=== PATIENT | male | born 1960 | race Caucasian/White ===

== ENCOUNTER → 2023-03-11 | Outpatient (CLI) | payer OTHER ==
[2023-03-11 17:34] LABS: Source, Urine Voided
[2023-03-11 19:04] LABS: BASOPHILS ABSOLUTE AUTO 0.04 K/mm3 (0.00-0.23); BASOPHILS PERCENT AUTO 1 % (0-2); EOSINOPHILS ABSOLUTE AUTO 0.18 K/mm3 (0.00-0.68); EOSINOPHILS PERCENT AUTO 3 % (0-6); Hematocrit 46.8 % (37.0-53.0); Hemoglobin 15.5 g/dL (13.5-17.5); IMMATURE GRAN ABSOLUTE AUTO 0.02 K/mm3 (0.00-0.10); IMMATURE GRAN PERCENT AUTO 0 % (0-1); LYMPHOCYTES ABSOLUTE AUTO 1.55 K/mm3 (0.84-5.20); LYMPHOCYTES PERCENT AUTO 27 % (21-46); MONOCYTES ABSOLUTE AUTO 0.52 K/mm3 (0.16-1.47); MONOCYTES PERCENT AUTO 9 % (4-13); Mean Corpuscular HGB 27.7 pg (26.0-34.0); Mean Corpuscular HGB Conc 33.1 g/dL (31.5-36.5); Mean Corpuscular Volume 84 fL (80-100); Mean Platelet Volume 10.4 fL (9.1-12.4); NEUTROPHILS PERCENT AUTO 60 % (41-73); Platelet Count 193 K/mm3 (150-400); RDW Coefficient Variation 13.4 % (11.7-14.2); RDW Standard Deviation 41.1 fL (35.1-46.3); Red Blood Cell Count 5.59 M/mm3 (4.30-5.90); White Blood Cell Count 5.81 K/mm3 (4.00-11.30)
[2023-03-11 19:08] LABS: Appearance, Urine Clear (Clear); Bilirubin, Urine Neg (Neg); Blood, Urine Neg (Neg); Color, Urine Yellow (P-Yellow); Glucose Qualitative, Urine 1+ (Neg); Ketones, Urine Neg (Neg); Leukocyte Esterase, Urine 1+ (Neg); Nitrite, Urine Neg (Neg); Protein, Urine 2+ (Neg); Urobilinogen, Urine NORM (Normal)
[2023-03-11 19:12] LABS: Red Blood Cells, Urine 0-2 /hpf (0-2); Squamous Epithelial Cells Rare /hpf (Few)
[2023-03-11 19:13] LABS: Bacteria Few /hpf
== END ==
LOC: LAB 17:31 → LAB SHORT 17:31
PROVIDERS: Nurse Practitioner Family
DX: Z12.5 Encounter for screening for malignant neoplasm of prostate (principal); I10 Essential (primary) hypertension; F32.9 Major depressive disorder, single episode, unspecified; E78.2 Mixed hyperlipidemia; E55.9 Vitamin D deficiency, unspecified; R35.89 Other polyuria
CPT/HCPCS: 81001; 83036; 85025; 87086

== ENCOUNTER → 2023-03-12 | Outpatient (CLI) | payer OTHER ==
[2023-03-12 14:10] LABS: CHOL/HDL RATIO 6.5; Cholesterol 221 mg/dL (50-200); HDL Cholesterol 34 mg/dL (>39); LDL/HDL RATIO 3.7; Low Density Lipoprotein Chol 127 mg/dL (0-110); Triglycerides 300 mg/dL (30-160); Very Low Density Lipoprot Chol 60 mg/dL (6-32)
[2023-03-13 15:09] LABS: A/G RATIO 1.7 (1.2-2.2); BILIRUBIN, TOTAL 0.6 mg/dL (0.0-1.2); CALCIUM, SERUM 9.6 mg/dL (8.6-10.2); CREATININE, SERUM 1.37 mg/dL (0.76-1.27); GLOBULIN, TOTAL 2.6 g/dL (1.5-4.5); POTASSIUM, SERUM 4.8 mmol/L (3.5-5.2); PROTEIN, TOTAL, SERUM 6.9 g/dL (6.0-8.5)
== END ==
LOC: LAB SHORT 12:46
PROVIDERS: Nurse Practitioner Family
DX: E78.2 Mixed hyperlipidemia (principal); E55.9 Vitamin D deficiency, unspecified; I10 Essential (primary) hypertension; Z12.5 Encounter for screening for malignant neoplasm of prostate; F32.9 Major depressive disorder, single episode, unspecified
CPT/HCPCS: 80053; 80061; 82306; 84443; G0103

== ENCOUNTER 2023-04-24 12:53 | Emergency (ER) | payer OTHER ==
[~2023-04-24] VITALS: Ht 177.8 cm; Wt 131.5 kg
[2023-04-24] MEDS ORDERED: NS 1,000 ML IV SCH (13:00)
[2023-04-24 13:52] LABS: BASOPHILS ABSOLUTE AUTO 0.03 K/mm3 (0.00-0.23); BASOPHILS PERCENT AUTO 1 % (0-2); EOSINOPHILS ABSOLUTE AUTO 0.15 K/mm3 (0.00-0.68); EOSINOPHILS PERCENT AUTO 3 % (0-6); Hematocrit 41.4 % (37.0-53.0); IMMATURE GRAN ABSOLUTE AUTO 0.01 K/mm3 (0.00-0.10); IMMATURE GRAN PERCENT AUTO 0 % (0-1); LYMPHOCYTES ABSOLUTE AUTO 1.35 K/mm3 (0.84-5.20); LYMPHOCYTES PERCENT AUTO 27 % (21-46); MONOCYTES ABSOLUTE AUTO 0.52 K/mm3 (0.16-1.47); MONOCYTES PERCENT AUTO 10 % (4-13); Mean Corpuscular HGB 28.3 pg (26.0-34.0); Mean Corpuscular HGB Conc 33.8 g/dL (31.5-36.5); Mean Corpuscular Volume 84 fL (80-100); Mean Platelet Volume 9.8 fL (9.1-12.4); NEUTROPHILS ABSOLUTE AUTO 2.94 K/mm3 (1.96-9.15); NEUTROPHILS PERCENT AUTO 59 % (41-73); Platelet Count 146 K/mm3 (150-400); RDW Coefficient Variation 13.2 % (11.7-14.2); RDW Standard Deviation 40.5 fL (35.1-46.3); Red Blood Cell Count 4.95 M/mm3 (4.30-5.90)
[2023-04-24 14:17] LABS: Albumin, Blood 3.6 g/dL (3.4-5.0); Bilirubin, Total 0.7 mg/dL (0.1-1.0); Bun/Creatinine Ratio 12.2 (12.0-20.0); Calcium, Blood 9.3 mg/dL (8.5-10.1); Creatinine, Blood 1.15 mg/dL (0.60-1.20); Globulin, Blood 3.5 g/dL (2.2-4.0); Total Protein, Blood 7.1 g/dL (6.4-8.2)
[2023-04-24 16:32] VITALS: BP 152/95
== END 2023-04-24 16:33 | disposition home or self-care (01) ==
LOC: ER 12:53
PROVIDERS: Emergency Medicine
DX: R41.82 Altered mental status, unspecified (principal); Z88.0 Allergy status to penicillin
CPT/HCPCS: 70450; 80053; 85025; 93005; 93010; 96360; 96361; 99284-25; J7030

== ENCOUNTER 2023-08-26 10:51 | Emergency (ER) | payer MEDICARE, OTHER ==
[~2023-08-26] VITALS: Ht 172.7 cm; Wt 108.9 kg
[~2023-08-26 10:51] MED LIST: ALBU90OI INH; ALLO300 PO; ATOR40TA PO; Aspir 8181 MG PO; BANATROL PLUS1 EAC1 PO; BASAGLAR K100 UNIT/1 SC; BUPR150ER PO; BUPR75 PO; ERGO50000 PO; HUMALOG KW100 UNIT/1 SC; LEVE500 PO; LISI20 PO; LOSA50 PO; MONT10T PO; ROPI1 PO; SERT100 PO; TAMS.4ER PO; TROKENDI XR100 MG PO
[2023-08-26] MEDS ORDERED: ONDA4ODT MM (11:08)
[2023-08-26] MEDS ORDERED: LASIX20 M2 PO (11:09)
[2023-08-26 11:15] VITALS: BP 164/95
[2023-08-26] MEDS ORDERED: Topiramate 100 MG Tab PO ONE (11:20)
== END 2023-08-26 11:45 | disposition home or self-care (01) ==
LOC: ER 10:51
DX: G40.909 Epilepsy, unspecified, not intractable, without status epilepticus (principal); Z88.0 Allergy status to penicillin; Z79.4 Long term (current) use of insulin; Z79.85 Long-term (current) use of injectable non-insulin antidiabetic drugs; Z79.899 Other long term (current) drug therapy
CPT/HCPCS: 99284; A9270

== ENCOUNTER 2023-08-29 15:52 | Emergency (ER) | payer MEDICARE, OTHER ==
[~2023-08-29] VITALS: Ht 180.3 cm; Wt 120.2 kg
[~2023-08-29 15:52] MED LIST changes: +LASIX20 M2 PO; +ONDA4ODT MM
[2023-08-29 16:17] LABS: BASOPHILS ABSOLUTE AUTO 0.03 K/mm3 (0.00-0.23); BASOPHILS PERCENT AUTO 1 % (0-2); EOSINOPHILS ABSOLUTE AUTO 0.09 K/mm3 (0.00-0.68); EOSINOPHILS PERCENT AUTO 2 % (0-6); Hematocrit 45.4 % (37.0-53.0); Hemoglobin 15.1 g/dL (13.5-17.5); IMMATURE GRAN ABSOLUTE AUTO 0.02 K/mm3 (0.00-0.10); IMMATURE GRAN PERCENT AUTO 0 % (0-1); LYMPHOCYTES PERCENT AUTO 14 % (21-46); MONOCYTES ABSOLUTE AUTO 0.77 K/mm3 (0.16-1.47); MONOCYTES PERCENT AUTO 13 % (4-13); Mean Corpuscular HGB 28.2 pg (26.0-34.0); Mean Corpuscular HGB Conc 33.3 g/dL (31.5-36.5); Mean Corpuscular Volume 85 fL (80-100); Mean Platelet Volume 9.9 fL (9.1-12.4); NEUTROPHILS ABSOLUTE AUTO 4.21 K/mm3 (1.96-9.15); NEUTROPHILS PERCENT AUTO 71 % (41-73); Platelet Count 159 K/mm3 (150-400); RDW Coefficient Variation 13.2 % (11.7-14.2); RDW Standard Deviation 40.3 fL (35.1-46.3); Red Blood Cell Count 5.36 M/mm3 (4.30-5.90); White Blood Cell Count 5.92 K/mm3 (4.00-11.30)
[2023-08-29 16:31] LABS: Albumin, Blood 3.9 g/dL (3.4-5.0); Albumin/Globulin Ratio 0.9 (0.8-1.8); Bilirubin, Total 0.5 mg/dL (0.1-1.0); Bun/Creatinine Ratio 14.9 (12.0-20.0); Calcium, Blood 8.7 mg/dL (8.5-10.1); Creatinine, Blood 1.48 mg/dL (0.60-1.20); Globulin, Blood 4.3 g/dL (2.2-4.0); Potassium, Blood 3.6 mmol/L (3.5-5.5); Total Protein, Blood 8.2 g/dL (6.4-8.2)
[2023-08-29] MEDS ORDERED: NS 1,000 ML IV SCH (17:10)
[2023-08-29] MEDS ORDERED: Acetaminophen 500 MG Tab PO ONE (17:55)
[2023-08-29] MEDS ORDERED: Topiramate 100 MG Tab PO ONE (18:10)
[2023-08-29 18:15] LABS: Influenza A, PCR NEGATIVE (NEGATIVE); Influenza B, PCR NEGATIVE (NEGATIVE); Resp Syncytial Virus, PCR NEGATIVE (NEGATIVE)
[2023-08-29 18:20] LABS: Source, Urine Clean Catch
[2023-08-29 18:25] LABS: Appearance, Urine Clear (Clear); Bilirubin, Urine Neg (Neg); Blood, Urine Neg (Neg); Color, Urine Yellow (P-Yellow); Glucose Qualitative, Urine Neg (Neg); Ketones, Urine Neg (Neg); Leukocyte Esterase, Urine Neg (Neg); Nitrite, Urine Neg (Neg); Protein, Urine Neg (Neg); Urobilinogen, Urine NORM (Normal)
[2023-08-29 18:48] LABS: SARS-Cov-2 (COVID-19) PCR, MMC POSITIVE (NEGATIVE)
[2023-08-29] MEDS ORDERED: ONDA4ODT MM (18:52)
[2023-08-29 19:20] VITALS: BP 119/95
== END 2023-08-29 19:25 | disposition home or self-care (01) ==
LOC: ER 15:52
PROVIDERS: Emergency Medicine
DX: U07.1 COVID-19 (principal); G40.909 Epilepsy, unspecified, not intractable, without status epilepticus; I10 Essential (primary) hypertension; G47.33 Obstructive sleep apnea (adult) (pediatric); E11.9 Type 2 diabetes mellitus without complications; Z86.73 Personal history of transient ischemic attack (TIA), and cerebral infarction without residual deficits; Z79.4 Long term (current) use of insulin; Z79.899 Other long term (current) drug therapy; Z79.82 Long term (current) use of aspirin; Z88.1 Allergy status to other antibiotic agents
CPT/HCPCS: 0241U; 71046; 80053; 81003; 85025; 93005; 93010; 96360; 99285-25; A9270; J7030

== ENCOUNTER 2023-12-05 13:09 | Observation (INO) | payer OTHER ==
[~2023-12-05] VITALS: Ht 167.6 cm; Wt 124.7 kg
[2023-12-05] MEDS ORDERED: Ondansetron HCl 2 MG / ML 2ML Vial ONE (13:28)
[2023-12-05 14:27] LABS: BASOPHILS ABSOLUTE AUTO 0.06 K/mm3 (0.00-0.23); BASOPHILS PERCENT AUTO 1 % (0-2); EOSINOPHILS ABSOLUTE AUTO 0.19 K/mm3 (0.00-0.68); EOSINOPHILS PERCENT AUTO 2 % (0-6); Hematocrit 48.2 % (37.0-53.0); Hemoglobin 16.1 g/dL (13.5-17.5); IMMATURE GRAN ABSOLUTE AUTO 0.03 K/mm3 (0.00-0.10); IMMATURE GRAN PERCENT AUTO 0 % (0-1); LYMPHOCYTES ABSOLUTE AUTO 1.92 K/mm3 (0.84-5.20); LYMPHOCYTES PERCENT AUTO 23 % (21-46); MONOCYTES ABSOLUTE AUTO 0.87 K/mm3 (0.16-1.47); MONOCYTES PERCENT AUTO 11 % (4-13); Mean Corpuscular HGB 27.4 pg (26.0-34.0); Mean Corpuscular HGB Conc 33.4 g/dL (31.5-36.5); Mean Corpuscular Volume 82 fL (80-100); Mean Platelet Volume 9.6 fL (9.1-12.4); NEUTROPHILS ABSOLUTE AUTO 5.14 K/mm3 (1.96-9.15); NEUTROPHILS PERCENT AUTO 63 % (41-73); Platelet Count 211 K/mm3 (150-400); RDW Coefficient Variation 13.8 % (11.7-14.2); Red Blood Cell Count 5.87 M/mm3 (4.30-5.90); White Blood Cell Count 8.21 K/mm3 (4.00-11.30)
[2023-12-05 14:42] LABS: Ethanol (Alcohol), Blood, Med <3 mg/dL; Free Thyroxine 0.91 ng/dL (0.70-1.60); Salicylate <1.7 mg/dL (2.8-20.0)
[2023-12-05 14:51] LABS: Acetaminophen, Random <2.0 ug/mL (10.0-30.0); Alanine Aminotransfer (ALT/SGP 45 U/L (12-78); Albumin, Blood 3.9 g/dL (3.4-5.0); Alk Phos 79 U/L (50-136); Anion Gap 11 mmol/L (3-11); Aspartate Aminotrans (AST/SGOT 34 U/L (12-37); Bilirubin, Total 0.5 mg/dL (0.1-1.0); Blood Urea Nitrogen 20 mg/dL (8-24); Bun/Creatinine Ratio 16.7 (12.0-20.0); CO2, Blood 22 mmol/L (21-32); Calcium, Blood 9.4 mg/dL (8.5-10.1); Chloride, Blood 108 mmol/L (98-108); Globulin, Blood 3.8 g/dL (2.2-4.0); Glomerular Filtration Rate 67 (60-); Glucose, Blood 131 mg/dL (70-99); Sodium, Blood 137 mmol/L (136-145); Total Protein, Blood 7.7 g/dL (6.4-8.2)
[2023-12-05] MEDS ORDERED: NS 1,000 ML BAG IR ONE (15:00)
[2023-12-05] MEDS ORDERED: NS 1,000 ML IV SCH (15:45)
[2023-12-05 17:31] LABS: U Amphetamine Screen Not Detected; U Barbituate Screen Not Detected; U Benzodiazapine Screen Not Detected; U Buprenorphine Screen Not Detected; U Cannabinoids Screen Not Detected; U Cocaine Screen Not Detected; U Methadone Screen Not Detected; U Methamphetamine Screen Not Detected; U Opiates Screen Not Detected; U Oxycodone Screen Not Detected; U Phencyclidine Screen Not Detected
[2023-12-06] MEDS ORDERED: Albuterol HFA200 ACT/6.7 GM INH INH PRN (13:00)
[2023-12-06] MEDS ORDERED: Ondansetron 4 MG SoluTab SL PRN (13:10)
[2023-12-06] MEDS ORDERED: Loperamide HCl 2 MG Cap PO ONE (15:40)
[2023-12-06] MEDS ORDERED: Insulin Human Lispro 100 Units/ML 3ML Syringe SC SCH (16:30)
[2023-12-06] MEDS ORDERED: Montelukast Sodium 10 MG Tab PO SCH (21:00)
[2023-12-06] MEDS ORDERED: Insulin Glargine-Yfgn 100 Unit/mL 3 ML SYR SC SCH (21:00)
[2023-12-06] MEDS ORDERED: Topiramate 100 MG Tab PO SCH (21:00)
[2023-12-06] MEDS ORDERED: FLU VACC TS2024-25(6MOS UP)/PF 45 MCG/0.5 ML SYRINGE IM SCH (22:35)
[2023-12-06] MEDS ORDERED: Ondansetron HCl 2 MG / ML 2ML Vial IV PRN (22:35)
[2023-12-06] MEDS ORDERED: Enoxaparin 40 MG/0.4 ML SYR SC SCH (23:00)
[2023-12-07 01:19] VITALS: BP 125/99
[2023-12-07 04:16] LABS: BASOPHILS ABSOLUTE AUTO 0.03 K/mm3 (0.00-0.23); BASOPHILS PERCENT AUTO 0 % (0-2); EOSINOPHILS ABSOLUTE AUTO 0.18 K/mm3 (0.00-0.68); EOSINOPHILS PERCENT AUTO 2 % (0-6); Hemoglobin 14.6 g/dL (13.5-17.5); IMMATURE GRAN ABSOLUTE AUTO 0.03 K/mm3 (0.00-0.10); IMMATURE GRAN PERCENT AUTO 0 % (0-1); LYMPHOCYTES ABSOLUTE AUTO 1.62 K/mm3 (0.84-5.20); LYMPHOCYTES PERCENT AUTO 20 % (21-46); MONOCYTES PERCENT AUTO 6 % (4-13); Mean Corpuscular HGB 27.5 pg (26.0-34.0); Mean Corpuscular HGB Conc 32.4 g/dL (31.5-36.5); Mean Corpuscular Volume 85 fL (80-100); Mean Platelet Volume 9.8 fL (9.1-12.4); NEUTROPHILS ABSOLUTE AUTO 5.57 K/mm3 (1.96-9.15); NEUTROPHILS PERCENT AUTO 70 % (41-73); Platelet Count 189 K/mm3 (150-400); RDW Coefficient Variation 14.2 % (11.7-14.2); RDW Standard Deviation 43.8 fL (35.1-46.3); White Blood Cell Count 7.93 K/mm3 (4.00-11.30)
[2023-12-07 04:38] LABS: Albumin, Blood 3.6 g/dL (3.4-5.0); Albumin/Globulin Ratio 0.9 (0.8-1.8); Bilirubin, Total 0.6 mg/dL (0.1-1.0); Bun/Creatinine Ratio 15.2 (12.0-20.0); Creatinine, Blood 1.58 mg/dL (0.60-1.20); Globulin, Blood 3.8 g/dL (2.2-4.0); Potassium, Blood 3.7 mmol/L (3.5-5.5); Total Protein, Blood 7.4 g/dL (6.4-8.2)
[2023-12-07 04:40] VITALS: BP 112/62
--- NOTE | 2023-12-07 05:22 | NUR ---
END OF SHIFT SUMMARY: Patient arrived from ER at 0119 in no apparent distress. Minimal belongings at bedside, home CPAP present- RT notified. NSR on telemetry, VSS on RA. 1 Assist to stand/pivot to bed from wheelchair. Denies pain, endorses SI. Currently on an involuntary psych hold for harm to self/intentional overdose with seroquel/citalopram. Medically cleared, unable to transfew to an acute psych facility at this time due to being unsteady on his feet and requiring diabetic management with insulin, per report from ED. Psych MD came to see patient and patient became withdrawn/nonverbal and refused to speak with them. 1:1 sitter at bedside, all suicide risk equipment removed from the room, checklist complete and placed on patient's chart. Patient in paper scrubs. Pending hospitalist/psych re-eval today to determine the plan of care.
[2023-12-07] MEDS ORDERED: Atorvastatin 10 MG Tab PO SCH (09:00)
[2023-12-07] MEDS ORDERED: Losartan Potassium 25 MG Tab PO SCH (09:00)
[2023-12-07] MEDS ORDERED: Losartan Potassium 50 MG Tab PO SCH (09:00)
[2023-12-07] MEDS ORDERED: Allopurinol 300 MG Tab PO SCH (09:00)
[2023-12-07] MEDS ORDERED: Tamsulosin HCl 0.4 MG Cap PO SCH (09:00)
[2023-12-07] MEDS ORDERED: Sertraline HCl 50 MG Tab PO SCH (09:00)
[2023-12-07] MEDS ORDERED: Aspirin 325 MG Tab PO SCH (09:00)
[2023-12-07 09:27] VITALS: BP 129/53
[2023-12-07 11:29] VITALS: BP 117/78
[2023-12-07] MEDS ORDERED: NS 1,000 ML IV SCH (12:00)
[2023-12-07 13:40] VITALS: BP 123/66
[2023-12-07 16:02] VITALS: BP 124/85
[2023-12-07] MEDS ORDERED: TAMS.4ER PO (16:17)
--- NOTE | 2023-12-07 16:59 | NUR ---
DISCHARG NOTE PT REMAINS HIGH SI, STATING THAT HE "HAS MADE UP HIS MIND AND THERE IS NO CHANGING THAT" HE ALSO STATED THAT IF HE WERE TO GO HOME HE WOULD TRY TO HARM HIMSELF AGAIN. PT'S VSS, PT DOES NOT ALWAYS RESPOND TO BUT APEARS ALERT. PT WORKED WITH PHYSICAL THERAPY WHO RECOMMENDED A WALKER, PT ABLE TO TRANSFER TO [facility] WITH [facility]. CBG'S IN 120'S NO INSULIN GIVEN THIS SHIFT IT WAS NOT INDICATED AND PT HAD POOR APPETITE. HAD A 1:1 SITTER THROUGHT WHOLE SHIFT. PT WEARS CPAP WHILE SLEEPING. TRANSFERED VIA EMS TO [facility].
[2023-12-08] MEDS ORDERED: Aspirin 81 MG Chew PO SCH (09:00)
== END 2023-12-07 16:38 ==
LOC: ER 13:09 → PCU 13:10 → EOR 13:10 → PCU 12-07 01:17
PROVIDERS: Internal Medicine; Student in an Organized Health Care Education/Training Program; ADMIT Emergency Medicine
DX: F32.9 Major depressive disorder, single episode, unspecified (principal); T43.592A Poisoning by other antipsychotics and neuroleptics, intentional self-harm, initial encounter; T43.222A Poisoning by selective serotonin reuptake inhibitors, intentional self-harm, initial encounter; N17.9 Acute kidney failure, unspecified; E11.9 Type 2 diabetes mellitus without complications; N40.0 Benign prostatic hyperplasia without lower urinary tract symptoms; I10 Essential (primary) hypertension; I69.920 Aphasia following unspecified cerebrovascular disease; I69.998 Other sequelae following unspecified cerebrovascular disease; Z79.4 Long term (current) use of insulin; Z79.82 Long term (current) use of aspirin; Z79.899 Other long term (current) drug therapy; Z88.0 Allergy status to penicillin
CPT/HCPCS: 36415; 80053; 80320; 82947; 84439; 84443; 85025; 93005; 93010; 94660; 94762; 96361; 96374; 97116; 97162; 99285-25; A9270; G0378; G0480; J1815; J2405; J7030